=== PATIENT | male | born 1990 | race Caucasian/White ===

== ENCOUNTER 2022-01-15 04:15 | Emergency (ER) | payer OTHER ==
[~2022-01-15] VITALS: Ht 177.8 cm; Wt 113.4 kg
[2022-01-15 04:15] VITALS: BP 118/70
--- NOTE | 2022-01-15 04:15 | NUR ---
TO BED 07 AMBULATORY, BIBA FOR SUICIDAL IDEATION, FROM HOME.
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
--- NOTE | 2022-01-15 04:50 | NUR ---
BLOOD, SWABS AND URINE COLLECTED AND WALKED TO LAB.
[2022-01-15] MEDS ORDERED: IBUPROFEN 800 MG TAB PO ONE (05:10)
[2022-01-15 05:11] LABS: BASOPHILS % (AUTO) 0.6 % (0.0-2.0); EOSINOPHILS # (AUTO) 0.1 K/uL (0-0.4); EOSINOPHILS % (AUTO) 1.5 % (0.0-4.0); HEMATOCRIT 40.2 % (36-52); HEMOGLOBIN 13.9 g/dL (12.0-18.0); LYMPHOCYTES # (AUTO) 1.1 K/uL (2.0-11.5); LYMPHOCYTES % (AUTO) 14.2 % (20.5-51.1); MEAN CORPUSCULAR HEMOGLOBIN 31 pg (27-31); MEAN CORPUSCULAR HGB CONC 35 g/dL (33-37); MEAN CORPUSCULAR VOLUME 89.6 fL (80-94); MONOCYTES # (AUTO) 0.5 K/uL (0.8-1.0); MONOCYTES % (AUTO) 6.6 % (1.7-9.3); NEUTROPHILS % (AUTO) 77.1 % (42.2-75.2); PLATELET COUNT (AUTO) 202 K/uL (140-450); RED BLOOD CELL COUNT(AUTO) 4.49 MIL/uL (4.20-6.10); RED CELL DISTRIBUTION WIDTH 13.8 % (11.6-13.7); WHITE BLOOD COUNT (AUTO) 7.7 K/uL (4.8-10.8)
[2022-01-15 05:14] LABS: BARBITURATE, URINE NEGATIVE ng/ml (NEG <=200); BENZODIAZEPINE, URINE NEGATIVE ng/mL (NEG <=200); CANNABINOID, URINE POSITIVE ng/mL (NEG <=50); COCAINE, URINE NEGATIVE ng/mL (NEG <=300); OPIATE, URINE NEGATIVE ng/mL (NEG <=2000); PHENCYCLIDINE SCREEN,URINE NEGATIVE ng/mL (NEG <=25)
[2022-01-15 05:22] LABS: ALBUMIN 3.6 g/dL (3.4-5.0); ANION GAP 13.9 (8-16); ASPARTATE AMINOTRANSFERASE 25 U/L (15-37); CARBON DIOXIDE 24.4 mmol/L (21-32); CHLORIDE 106 mmol/L (98-107); CREATININE 1.2 mg/dL (0.6-1.3); GFR ARICAN-AMERICAN 92 mL/min (>90); GLUCOSE 96 mg/dL (74-106); POTASSIUM 3.3 mmol/L (3.5-5.1); SODIUM SERUM 141 mmol/L (136-145); TOTAL BILIRUBIN 0.7 mg/dL (0.0-1.0); UREA NITROGEN, BLOOD 20 mg/dL (7-18)
--- NOTE | 2022-01-15 05:33 | NUR ---
PATIENT MEDICATED PER MD ORDERS. TOLERATED WELL.
[2022-01-15] MEDS ORDERED: POTASSIUM CHLORIDE 10 MEQ TABER PO ONE (05:50)
--- NOTE | 2022-01-15 06:07 | NUR ---
RAD AT BEDSIDE
--- NOTE | 2022-01-15 06:20 | NUR ---
PATIENT MEDICATED PER MD ORDERS. TOLERATED WELL.
--- NOTE | 2022-01-15 06:21 | NUR ---
TELEPSYCH REQUESTED BY DR. BENDER.
--- NOTE | 2022-01-15 06:42 | NUR ---
PATIENT ASKED TO BE REPOSITIONED. BED LOW AND LOCKED. ALL NEEDS MET.
--- NOTE | 2022-01-15 07:30 | NUR ---
Pt report received from S[facility]. Transfer of care at this time.
--- NOTE | 2022-01-15 09:01 | NUR ---
PT PROVIDED WITH BREAKFAST TRAY. PT EATGING QUIETLY AT THIS TIME
--- NOTE | 2022-01-15 11:20 | NUR ---
PT BEING EVALUATED BY TELEPSYCH AT THIS TIME
--- NOTE | 2022-01-15 13:43 | NUR ---
pt swabbed for covid(novel). specimen walked and handed to lab
--- NOTE | 2022-01-15 14:15 | NUR ---
PT PROVIDED WITH LUNCH TRAY. PT EATING QUIETLY AT THIS TIME. ALL NEEDS MET
[2022-01-15 15:00] VITALS: BP 139/78
--- NOTE | 2022-01-15 16:02 | NUR ---
SPOKE WITH KELLIE, INTAKE NURSE AT [facility]. SHE WILL FURTHER REVIEW THE CASE AND CALL US BACK.
--- NOTE | 2022-01-15 19:25 | NUR ---
REPORT GIVEN CAROL ANN CALL AT [facility] . ALL QUESTIONS ANSWERED. MADE AWARE OF TX .
--- NOTE | 2022-01-15 19:28 | NUR ---
PT TAKEN FOR TX VIA GURNEY
[2022-01-16] MEDS ORDERED: risperiDONE 1 MG TAB PO SCH (09:00)
== END 2022-01-15 19:25 ==
LOC: MED 04:15 → EDBD 04:15 → MED 19:25
DX: R45.851 Suicidal ideations (principal); Z20.822 Contact with and (suspected) exposure to COVID-19; E87.6 Hypokalemia
CPT/HCPCS: 36415; 73630; 80053; 80305; 81002; 85025; 87426; 87635; 99285; C9803; G0482; Q0092

== ENCOUNTER 2022-02-08 16:21 | Emergency (ER) | payer OTHER ==
[~2022-02-08] VITALS: Ht 172.7 cm; Wt 86.2 kg
--- NOTE | 2022-02-08 16:25 | NUR ---
PT BIBA TO BED 02.
[2022-02-08 16:33] VITALS: BP 112/54
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
[2022-02-08] MEDS ORDERED: ATA25 PO (16:57)
[2022-02-08] MEDS ORDERED: IBUP-2213 PO (16:57)
--- NOTE | 2022-02-08 17:05 | NUR ---
Patient discharged with v/s stable. Written and verbal after care instructions given and explained. Patient verbalized understanding. Ambulatory with steady gait. All questions addressed prior to discharge. Advised to follow up with PMD.
== END 2022-02-08 17:05 | disposition home or self-care (01) ==
LOC: MED 16:21
DX: R00.2 Palpitations (principal); R07.89 Other chest pain; F17.200 Nicotine dependence, unspecified, uncomplicated; F12.90 Cannabis use, unspecified, uncomplicated; Z79.899 Other long term (current) drug therapy
CPT/HCPCS: 93005; 99283